=== PATIENT | female | born 1990 | race Caucasian/White ===

== ENCOUNTER → 2017-05-06 | Outpatient (CLI) | payer OTHER ==
[~2017-05-06] MED LIST: AMOXIL500 MG PO; BACTROBAN OINT22 GM PO; CLARITIN10 MG PO; FERRATE324 MG PO; FLEXERIL10 MG PO; FOLIC ACID B PO; KEPPRA750 MG PO; MOTRIN800 MG PO; NAPROSYN500 MG PO; NORCO 325 MG-51 TAB PO; PEN-V500 MG PO; PERIDEX 480 ML480 ML PO; PHENERGAN W/DM120 ML PO; SEPTRA DS 800 M1 TAB PO; TEGRETOL PO; ZITHROMAX Z PA250 MG PO; [UNRECOGNIZED DRUG - CODE] PO
[2017-05-06 11:01] LABS: BASO % 0.4 % (0.0-1.0); HEMATOCRIT 40.1 % (37.0-47.0); HEMOGLOBIN 13.3 g/dl (12.0-16.0); LYMPH # 1.4 10*3/uL (1.3-4.4); LYMPH % 27.5 % (27.0-41.0); MEAN CELL VOLUME 88.5 fl (81.0-99.0); MEAN CORPUSCULAR HGB 29.4 pg (27.0-31.0); MEAN CORPUSCULAR HGB CONC 33.2 g/dl (33.0-37.0); MEAN PLATELET VOLUME 9.9 fl (9.6-12.3); MONO # 0.5 10*3/uL (0.1-1.0); MONO % 10.1 % (3.0-9.0); NEUT # 3.2 10*3/uL (2.3-7.9); NEUT % 61.6 % (47.0-73.0); PLATELET COUNT AUTOMATED 233 10*3/uL (130-400); RED BLOOD COUNT 4.53 10*6/uL (4.10-5.10); RED CELL DISTRI WIDTH 12.4 % (0-14.5); WHITE BLOOD COUNT 5.2 10*3/uL (4.8-10.8)
[2017-05-06 11:25] LABS: ALBUMIN 3.2 gm/dl (3.1-4.5); BILIRUBIN, TOTAL 0.5 mg/dl (0.2-1.0); BUN 5 mg/dl (7-24); CARBON DIOXIDE 25 mmol/L (21-32); CHLORIDE 107 mmol/L (98-107); CHOLESTEROL 133 mg/dL (<200); EST GLOM FILT AFRICAN AMERICAN > 60 ml/min; GLUCOSE 84 mg/dL (65-99); IRON 109 ug/dL (50-170); POTASSIUM 3.6 mmol/L (3.5-5.1); SGOT/AST 28 IU/L (3-35); SGPT/ALT 46 U/L (12-78); SODIUM 140 mmol/L (136-145); TOTAL PROTEIN 7.1 gm/dL (6.4-8.2); TRIGLYCERIDES 70 mg/dl (<150); VLDL CHOLESTEROL 14 mg/dL (6-40)
[2017-05-06 11:31] LABS: ALKALINE PHOSPHATASE 37 U/L (45-117); FREE T4 1.28 ng/dl (0.76-1.46); HDL CHOLESTEROL 69 mg/dl (40-60); LDL CHOLESTEROL 50 mg/dL (9-159)
[2017-05-06 11:56] LABS: VITAMIN D, 25-HYDROXY 39.7 ng/mL (30-100)
[2017-05-06 11:57] LABS: FOLIC ACID > 24.00 ng/mL (>5.38)
== END | disposition home or self-care (01) ==
LOC: LAB 10:35
PROVIDERS: Internal Medicine
DX: Z13.21 Encounter for screening for nutritional disorder (principal); Z13.220 Encounter for screening for lipoid disorders; Z01.83 Encounter for blood typing; D50.9 Iron deficiency anemia, unspecified; G40.209 Localization-related (focal) (partial) symptomatic epilepsy and epileptic syndromes with complex partial seizures, not intractable, without status epilepticus; H66.001 Acute suppurative otitis media without spontaneous rupture of ear drum, right ear; H60.509 Unspecified acute noninfective otitis externa, unspecified ear; R53.81 Other malaise; E55.9 Vitamin D deficiency, unspecified

== ENCOUNTER 2017-10-15 18:56 | Emergency (ER) | payer OTHER ==
[~2017-10-15] VITALS: Ht 154.9 cm; Wt 129.3 kg
[2017-10-15 19:05] VITALS: BP 130/87
[2017-10-15] MEDS ORDERED: ZOFRAN ODT4 MG SL (21:13)
[2017-10-16] MEDS ORDERED: ZOFRAN ODT4 MG SL (15:10)
== END 2017-10-15 21:19 | disposition home or self-care (01) ==
LOC: ED 18:56
DX: R11.2 Nausea with vomiting, unspecified (principal)